=== PATIENT | female | born 1945 | race Caucasian/White ===

== ENCOUNTER 2016-09-13 13:13 | Emergency (ER) | payer MEDICARE, OTHER ==
[~2016-09-13] VITALS: Ht 157.5 cm; Wt 62.2 kg
[~2016-09-13 13:13] MED LIST: CYMB60CA PO; DIFL150T PO; DILA100C PO; KEPP750T PO; LORA-373 PO; OMEP20CA2 PO; RISP1TAB SL; ZOLP10TA3 PO
[2016-09-13 13:14] VITALS: BP 127/68; PULSE 84; RESP 18; TEMP 98.2; O2SAT 98
[2016-09-13] MEDS ORDERED: SODIUM CHLOR 0.9% 1000 ML INJ 1,000 ML IV ONE (13:18)
[2016-09-13 13:30] VITALS: RESP 18; O2SAT 98
[2016-09-13] MEDS ORDERED: levETIRAcetam 1000 MG INJ 100 ML IV ONE (13:30)
--- NOTE | 2016-09-13 13:39 | PD ---
HPI Chief Complaint: Stroke Alert Time Seen by Provider: 13:18 Travel History International Travel<30 days: No Contact w/Intl Traveler<30days: No History of Present Illness HPI Patient is an unfortunate 70-year-old female here as a stroke alert. 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 Cornell. Patient has since been undergoing radiation. Apparently she was last seen normal at approximately 9 AM when her went out for a walk. When he returned he found her altered, with the left nasolabial fold droop and difficulty speaking. Stroke alert was called per EMS. Blood glucose normal prior to arrival. Patient denies any complaints thinners repeatedly stating the #2. PFSH Past Medical History Anxiety: Yes Depression: Yes Cancer: Yes (colon, lung, brain) Cardiovascular Problems: No Chemotherapy: Yes Diminished Hearing: No Endocrine: No Gastrointestinal Disorders: Yes GERD: Yes Genitourinary: Yes Immune Disorder: No Kidney Stones: Yes Musculoskeletal: No Neurologic: Yes Psychiatric: Yes Respiratory: Yes (upper right lobectomy) Radiation Therapy: Yes Seizures: Yes Menopausal: Yes Past Surgical History Abdominal Surgery: Yes (appendix, ) Appendectomy: Yes Cardiac Surgery: No Endocrine Surgery: No Eye Surgery: No Gynecologic Surgery: Yes (hysterectomy) Hysterectomy: Yes Neurologic Surgery: Yes (gamanite) Thoracic Surgery: No Other Surgery: Yes (BRAIN TUMOR REMOVAL, upper right lung removal) Social History Alcohol Use: No Tobacco Use: No Substance Use: No Allergies-Medications (Allergen,Severity, Reaction): Coded Allergies: Ampicillin (Verified Allergy, Severe, 08/25/16) Contrast Media (Verified Allergy, Severe, 08/25/16) Morphine (Verified Allergy, Severe, Hives, 08/25/16) Macrodantin (Verified Allergy, Unknown, 08/25/16) Seroquel (Verified Adverse Reaction, Severe, Hallucinations, 08/25/16) Reported Meds & Prescriptions Reported Meds & Active Scripts Active Reported Potassium Chloride ER (Potassium Chloride) 20 Meq Tab 20 Meq PO DAILY Xanax (Alprazolam) 0.5 Mg Tab 0.5 Mg PO TID Cymbalta DR (Duloxetine HCl) 30 Mg Capdr 90 Mg PO DAILY Take 1 capsule (30mg) with 90mg capsule for a total dose of 90mg Risperidone 2 Mg Tab 2 Mg PO HS Cymbalta DR (Duloxetine HCl) 60 Mg Capdr 90 Mg PO DAILY Take 1 capsule (60mg) with 30mg capsule for a total dose of 90mg Keppra (Levetiracetam) 750 Mg Tab 1,500 Mg PO BID Omeprazole 20 Mg Cap 20 Mg PO DAILY Review of Systems ROS Limitations: Altered Mental Status, Speech Impaired, Poor Historian Physical Exam Exam Limitations: Altered Mental Status, Poor Historian Narrative GENERAL: Elderly female in no acute distress SKIN: Warm and dry. HEAD: Normocephalic. EYES: Pupils equal and round. 3 mm. No scleral icterus. No injection or drainage. ENT: No nasal bleeding or discharge. Mucous membranes pink and moist. NECK: Supple CARDIOVASCULAR: Regular rate and rhythm. No murmur appreciated. RESPIRATORY: No accessory muscle use. Clear to auscultation. Breath sounds equal bilaterally. GASTROINTESTINAL: Abdomen soft, non-tender, nondistended. MUSCULOSKELETAL: Moves all extremity's normally NEUROLOGICAL: Awake and alert. Patient follows commands but does not answer questions appropriately. Cannot tell me where she has, nor the date. I do not appreciate any nasal labial fold droop. No obvious cranial nerve deficits. Motor grossly within normal limits, no ataxia. No sensory loss. Expressive aphasia but no dysarthria. PSYCHIATRIC: Deferred given expressive aphasia Data Data Last Documented VS Vital Signs Date Time Temp Pulse Resp B/P Pulse Ox O2 Delivery O2 Flow Rate FiO2 09/13/16 13:30 18 98 Room Air 09/13/16 13:14 98.2 84 127/68 Orders Diet Npo (09/13/16 Lunch) Activity Bed Rest (09/13/16 ) Electrocardiogram (09/13/16 ) I-Stat Creatinine (09/13/16 13:18) I-Stat Profile (09/13/16 13:18) Prothrombin Time / Inr (Pt) (09/13/16 13:18) Act Partial Throm Time (Ptt) (09/13/16 13:18) Complete Blood Count With Diff (09/13/16 13:18) Fibrinogen (09/13/16 13:18) Creatine Kinase (Cpk) (09/13/16 13:18) Troponin I (09/13/16 13:18) Ua Includes Microscopic (09/13/16 13:18) Drug Screen, Random Urine (09/13/16 13:18) Type And Screen (09/13/16 13:18) Ct Brain W/O Iv Contrast(Rout) (09/13/16 ) Consult Neurology (09/13/16 ) Blood Glucose (09/13/16 13:18) Ecg Monitoring (09/13/16 13:18) Neuro Checks Q2HX12,Q4H (09/13/16 13:18) Nursing Bedside Swallow Assess .ONCE (09/13/16 13:18) Iv Access Insert/Monitor (09/13/16 13:18) NPO (09/13/16 13:18) Oximetry (09/13/16 13:18) Oxygen Administration (09/13/16 13:18) Sodium Chlor 0.9% 1000 Ml Inj (Ns 1000 M (09/13/16 13:18) Resp Oxygen Shubham C Titrat 1-4 L (09/13/16 13:18) Cath For Specimen (09/13/16 13:18) Levetiracetam 1000 Mg Inj (Keppra 1000 M (09/13/16 13:30) Consult Neurosurgery (09/13/16 ) Dexamethasone Inj (Decadron Inj) (09/13/16 13:45) Consult Palliative Care (09/13/16 ) Consult Medical Oncology (09/13/16 ) Hospice Consult (09/13/16 13:54) (Hub Use Only)In Phy Cons/Ref (09/13/16 ) (Hub Use Only)In Phy Cons/Ref (09/13/16 ) ([facility] ) Hydromorphone Pf Inj (Dilaudid Pf Inj) (09/13/16 15:00) (Hub Use Only)In Phy Cons/Ref (09/13/16 ) Labs Laboratory Tests Test 09/13/16 13:20 White Blood Count 10.7 TH/MM3 Red Blood Count 4.52 MIL/MM3 Hemoglobin 14.5 GM/DL Bedside Hemoglobin 14.3 G/DL Hematocrit 42.2 % Bedside Hematocrit 43.0 % Mean Corpuscular Volume 93.5 FL Mean Corpuscular Hemoglobin 32.2 PG Mean Corpuscular Hemoglobin 34.4 % Concent Red Cell Distribution Width 13.9 % Platelet Count 243 TH/MM3 Mean Platelet Volume 7.7 FL Neutrophils (%) (Auto) 83.6 % Lymphocytes (%) (Auto) 7.4 % Monocytes (%) (Auto) 7.9 % Eosinophils (%) (Auto) 0.2 % Basophils (%) (Auto) 0.9 % Neutrophils # (Auto) 9.0 TH/MM3 Lymphocytes # (Auto) 0.8 TH/MM3 Monocytes # (Auto) 0.8 TH/MM3 Eosinophils # (Auto) 0.0 TH/MM3 Basophils # (Auto) 0.1 TH/MM3 CBC Comment DIFF FINAL Differential Comment Prothrombin Time 11.4 SEC Prothromb Time International 1.0 RATIO Ratio Activated Partial 27.6 SEC Thromboplast Time Fibrinogen 308 mg/dL Bedside Sodium 136 MMOL/L Bedside Potassium 4.5 MMOL/L Bedside Chloride 106 MMOL/L Bedside Blood Urea Nitrogen 15 MG/DL Bedside Creatinine 0.8 MG/DL Bedside Glucose 95 MG/DL Total Creatine Kinase 79 U/L Troponin I LESS THAN 0.02 NG/ML Blood Type AB POSITIVE Antibody Screen NEGATIVE MDM Medical Decision Making Medical Screen Exam Complete: Yes Emergency Medical Condition: Yes Medical Record Reviewed: Yes Differential Diagnosis 70-year-old female with metastatic breast cancer to brain with previous craniotomy, intracranial radiation here as a stroke alert for altered mental status, expressive aphasia. Differential includes ICH, mass lesion, focal seizure, CVA. Narrative Course Patient placed on monitor, IV established and blood obtained. NIH stroke scale 3 @1316 with points off only for aphasia and inability to answer questions. Patient expedited to CT, she is not a candidate for CT given allergy to contrast media. Case was discussed with Dr. Peterson of neurology given my concern for possible seizure and he recommends Keppra 1000 mg. Given her intracranial mass, intracranial surgery and time of onset she is certainly not a candidate for thrombolysis. Preliminarily read of head CT by Dr. Tamez notes increased intracranial mass with midline shift. No evidence of hemorrhage. With her mass lesion and shift patient was given 10 mg of Decadron. Neurosurgery was consulted, recommend no operative management. Laboratory workup unremarkable. EKG showed sinus rhythm without notable ST or T -wave abnormalities and normal intervals. I spoke with Dr. Goetz of medical oncology who follows patient as an outpatient. When she was last seen, patient declined any further treatment, chemotherapy, radiation, etc. and was more focused on comfort. Knowing her worsening symptoms and goals of care I discussed with patient and her hospice, they certainly are in agreement with an rolling in hospice. Case management was consulted for further assistance. Critical Care Narrative Aggregate critical care time was 50 minutes. Time to perform other separately billable procedures was not included in the critical care time. My time did not include minutes spent treating any other patients simultaneously or on activities that did not directly contribute to the patient's treatment. The services I provided to this patient were to treat and/or prevent clinically significant deterioration that could result in: Neurologic decompensation, , disability I provided critical care services requiring my management, as noted below: Chart data review, documentation time, medication orders and management, vital sign assessments/reviewing monitor data, ordering and reviewing lab tests, ordering and interpreting/reviewing x-rays and diagnostic studies, care of the patient and discussion of the patient with the admitting physicians. Diagnosis Primary Impression: Intracranial mass Additional Impressions: Midline shift of brain Non-small cell lung cancer Metastasis to brain Altered mental status Qualified Code: R41.82 - Altered mental status, unspecified altered mental status type Expressive aphasia Disposition: 51 HOSPICE/MED FACILITY Condition: Serious Giselle Hollnad MD Sep 13, 2016 13:39
[2016-09-13 13:40] LABS: BASOPHIL # 0.1 TH/MM3 (0-0.2); BASOPHIL % 0.9 % (0.0-2.0); EOSINOPHIL % 0.2 % (0.0-4.0); HEMATOCRIT 42.2 % (35.0-46.0); HEMO FLAGS DIFF FINAL; I-STAT POTASSIUM 4.5 MMOL/L (3.5-4.9); I-STAT SODIUM 136 MMOL/L (138-146); LYMPH % 7.4 % (9.0-44.0); LYMPHOCYTE # 0.8 TH/MM3 (1.0-4.8); MEAN CELL VOLUME 93.5 FL (80.0-100.0); MEAN CORPUSCULAR HEMOGLOBIN 32.2 PG (27.0-34.0); MEAN CORPUSCULAR HGB CONC 34.4 % (32.0-36.0); MONO % 7.9 % (0.0-8.0); NEUT % 83.6 % (16.0-70.0); PLATELET COUNT 243 TH/MM3 (150-450); RED BLOOD COUNT 4.52 MIL/MM3 (4.00-5.30); RED CELL DISTRIBUTION WIDTH 13.9 % (11.6-17.2); WHITE BLOOD COUNT 10.7 TH/MM3 (4.0-11.0)
[2016-09-13] MEDS ORDERED: DEXAMETHASONE SOD PHOS 20 MG/5 ML VIAL IV PUSH ONE (13:45)
--- NOTE | 2016-09-13 13:49 | RADRPT ---
EXAM DATE/TIME: 09/13/2016 13:26 [facility] COMPARISON: CT BRAIN W/O CONTRAST, May 06, 2016, 10:31. INDICATIONS : Stroke alert; aphagia. RADIATION DOSE: 30.55 CTDIvol (mGy) Case was discussed with Dr. Jj while on the scanner. MEDICAL HISTORY : Seizures. Brain tumor. SURGICAL HISTORY : Tumor resection. ENCOUNTER: Initial ACUITY: 1 day PAIN SCALE: Non-responsive LOCATION: Cranial TECHNIQUE: Multiple contiguous axial images were obtained of the head. Using automated exposure control and adjustment of the mA and/or kV according to patient size, radiation dose was kept as low as reasonably achievable to obtain optimal diagnostic quality images. FINDINGS: There is a large area of vasogenic edema in the left parieto-occipital region with effacement of the left lateral ventricle. Right hemisphere is unremarkable. Posterior fossa appears normal. CONCLUSION: Significant increase in the amount of vasogenic edema consistent with advancing tumor. Gage Tamez MD FACR on September 13, 2016 at 13:44 Board Certified Radiologist. This report was verified electronically.
[2016-09-13 13:57] LABS: PROTHROMBIN TIME - PATIENT 11.4 SEC (9.8-11.6)
[2016-09-13 13:58] LABS: APTT (PATIENT) 27.6 SEC (24.3-30.1)
[2016-09-13 14:03] LABS: CREATINE KINASE 79 U/L (26-192)
[2016-09-13] MEDS ORDERED: HYDROmorphone HCL PF 1 MG/ML VIAL IM ONE (15:00)
[2016-09-13] MEDS ORDERED: CYMB30CA PO (15:06)
[2016-09-13] MEDS ORDERED: RISP2TAB2 PO (15:06)
[2016-09-13] MEDS ORDERED: ALPR.5 PO (15:06)
[2016-09-13] MEDS ORDERED: POTA-163 PO (15:06)
[2016-09-13 16:00] VITALS: BP 151/78; PULSE 76; RESP 18; O2SAT 98
[2016-09-13] MEDS: HYDROmorphone HCL PF 1 MG/ML VIAL IM ONE ×2 (17:15→17:39)
--- NOTE | 2016-09-13 19:42 | EKG ---
Date Performed: 09/13/2016 Time Performed: 13:48:23 PTAGE: 70 years EKG: Sinus rhythm NONSPECIFIC T-WAVE ABNORMALITY BORDERLINE ECG PREVIOUS TRACING : 05/02/2016 05.25 Since previous tracing, no significant change noted DOCTOR: Jacques Shea Interpretating Date/Time 09/13/2016 19:41:52
== END 2016-09-13 18:53 | disposition hospice, inpatient (51) ==
LOC: NEPE 13:13
DX: C79.31 Secondary malignant neoplasm of brain (principal); R47.01 Aphasia; R94.31 Abnormal electrocardiogram [ECG] [EKG]; R56.9 Unspecified convulsions
CPT/HCPCS: 70450; 82435; 82550; 82565; 82947; 84132; 84295; 84484; 84520; 85025; 85384; 85610; 85730; 86850; 86900; 86901; 93005; 96372; 96374; 96375; 99291; J1100; J1170; J1953; J7030